=== PATIENT | female | born 1950 | race Caucasian/White ===

== ENCOUNTER → 2017-11-22 | Outpatient (CLI) | payer OTHER | LOC: M.ULTRA 14:00 | DX: I70.212 Atherosclerosis of native arteries of extremities with intermittent claudication, left leg (principal) ==

== ENCOUNTER → 2017-11-28 | Outpatient (CLI) | payer OTHER | LOC: M.RAD 14:43 | DX: M25.552 Pain in left hip (principal); R10.30 Lower abdominal pain, unspecified ==

== ENCOUNTER → 2017-12-27 | Outpatient (CLI) | payer OTHER | LOC: M.RAD 09:57 | DX: Z12.31 Encounter for screening mammogram for malignant neoplasm of breast (principal) ==

== ENCOUNTER → 2018-08-21 | Outpatient (CLI) | payer OTHER | LOC: M.ULTRA 07:17 | DX: K76.0 Fatty (change of) liver, not elsewhere classified (principal); I70.0 Atherosclerosis of aorta; R79.89 Other specified abnormal findings of blood chemistry ==